=== PATIENT | male | born 1945 | race Caucasian/White ===

== ENCOUNTER → 2020-01-07 15:56 | Outpatient (BNVA) | payer MEDICARE, OTHER, SELFPAY | PROVIDERS: Family Provider Internal Medicine; PCP Internal Medicine; Referring Provider Internal Medicine; Visit Provider Dermatology | DX: Z12.83 Encounter for screening for malignant neoplasm of skin (principal); Q82.8 Other specified congenital malformations of skin; D22.9 Melanocytic nevi, unspecified; L82.1 Other seborrheic keratosis; B35.1 Tinea unguium | CPT/HCPCS: 99203 ==

== ENCOUNTER 2020-02-17 08:21 | Outpatient (CLI) | payer MEDICARE, OTHER, SELFPAY ==
--- NOTE | 2020-02-17 08:06 | ECG_ITS ---
[facility] Test Date: 2020-02-17 Pat Name: Bandar Marlow Department: Room: Gender: Male Machine Staker: Aparna Martino : 1945 Requested By: Jesus Rodriguez Order Number: [id number] Meaghan MD: Jesus Rodriguez M.D. Interpretive Statements NAME OF STUDY: EXERCISE SESTAMIBI STRESS TEST INDICATION: [Chest Pain, ] Procedure: At the baseline the blood pressure was 132/72 mmHg, oxygen saturation 96% with a heart rate of 70 bpm. The electrocardiogram showed sinus rhythm, normal axis with normal ST and T's. Exercised on Charan protocol for a total of 6 minutes and 30 seconds. Achieved 10.2 METS. Heart rate. A total of 0.4 mg of Lexiscan was infused. The stress phase was continued for a total of 5 minutes. Maximum heart rate at peak stress was 135 bpm which was 91% of maximum predicted heart rate, oxygen saturation 93% with a blood pressure of 179/57 mmHg. The EKG at the peak infusion revealed sinus rhythm with no significant ST-T wave changes. Occasional PVCs were noted. Sestamibi was injected 20 seconds after exercise. blood pressure at the end of recovery phase was 156/80 mmHg, oxygen saturation 93% with a heart rate of 75 bpm. Conclusion: 1. Normal EKG response to exercise 2. No exercise induced chest pain or cardiac arrhythmia. 3. Normal blood pressure and heart rate response. 4. Sestamibi/sestamibi perfusion scan pending; see separate report. Electronically Signed On 02-17-2020 14:40:55 CDT by Jesus Rodriguez M.D. [id number]
--- NOTE | 2020-02-17 08:06 | NMCV_ITS ---
NM kristopher perf SPECT r/s* [id number] Bandar Marlow Age: 74 Gender: M : 1945 Exam Date: 02/17/2020 08:51 Ordering Phys: Molina Hopkins MD Technologist: Vanessa Mcgowan Exam Location: [facility] Indications: Chest pain STRESS TEST Please see separate stress test report in [facility] for full findings IMAGE PROTOCOL Rest/Stress 1 Exercise Day Radiopharmaceutical Dose (mCi) Administration Site Administered by Rest: Tc-99m 10.8 IV Sameer Gabriel, WATER MECHANIC Sestamibi Stress:Tc-99m 31.6 IV Shahrzad Tubbs WATER MECHANIC Sestamibi Rest: 17-Feb-2020 60 Discovery 630 Stress: 17-Feb-2020 60 Discovery 630 Radiopharmaceutical was injected at 85 % maximum heart rate. Images obtained in supine and prone position. SPECT RESULTS Technical Quality: Good Raw Data Analysis: Normal Image Corrections: No attenuation or motion correction applied Summed Stress Score: 4 Summed Rest Score: 8 Summed Difference Score: 3 PERFUSION FINDINGS There is decreased uptake of radiotracer in the inferior wall. This improves on stress indicating presence of attenuation artifact. No significant reversible defect is noted in other territories. FUNCTIONAL RESULTS (calculated via Gated SPECT) Stress Image LV EF (%): 55 Stress EDV (mL):85 TID: 1.07 Stress ESV (mL):38 FUNCTIONAL FINDINGS: There is normal left ventricular systolic function. IMPRESSIONS 1. Normal myocardial perfusion with no reversible perfusion defect noted. Decreased uptake in inferior wall is likely secondary to attenuation artifact. 2. Normal LV systolic function with EF 55%. Jesus Rodriguez MD (Electronically Signed) Final Date: 22 February 2020 18:13 S
[2020-02-17 08:17] VITALS: BMI 24.3
[2020-02-17 10:07] VITALS: BP 190/92; PULSE 86
== END 2020-02-17 08:22 | disposition home or self-care (01) ==
LOC: CDL 08:21
PROVIDERS: PCP Internal Medicine; Visit Provider Internal Medicine
DX: R07.9 Chest pain, unspecified (principal)
CPT/HCPCS: 78452; 93017; A9500

== ENCOUNTER 2022-03-09 11:21 | Outpatient (RCR) | payer MEDICARE, OTHER, SELFPAY | END 2022-03-24 06:00 | disposition home or self-care (01) | LOC: SPT 11:21 | PROVIDERS: PCP Internal Medicine; Visit Provider Internal Medicine | DX: R29.6 Repeated falls (principal) | CPT/HCPCS: 97110; 97112; 97161 ==

== ENCOUNTER → 2022-05-03 14:37 | Outpatient (BNVA) | payer MEDICARE, OTHER, SELFPAY | PROVIDERS: PCP Internal Medicine; Visit Provider Internal Medicine | DX: I25.10 Atherosclerotic heart disease of native coronary artery without angina pectoris (principal); I10 Essential (primary) hypertension; R07.9 Chest pain, unspecified; Z87.891 Personal history of nicotine dependence | CPT/HCPCS: 99214 ==

== ENCOUNTER → 2023-01-02 13:27 | Outpatient (BNVA) | payer MEDICARE, OTHER, SELFPAY | PROVIDERS: PCP Internal Medicine; Visit Provider Dermatology | DX: D18.01 Hemangioma of skin and subcutaneous tissue (principal); L82.1 Other seborrheic keratosis; L57.0 Actinic keratosis; L81.4 Other melanin hyperpigmentation; Z85.828 Personal history of other malignant neoplasm of skin | CPT/HCPCS: 17000; 99213 ==

== ENCOUNTER → 2023-05-02 14:55 | Outpatient (BNVA) | payer MEDICARE, OTHER, SELFPAY | PROVIDERS: PCP Internal Medicine; Visit Provider Internal Medicine | DX: I10 Essential (primary) hypertension (principal); I25.10 Atherosclerotic heart disease of native coronary artery without angina pectoris; R07.9 Chest pain, unspecified; Z87.891 Personal history of nicotine dependence; Z79.82 Long term (current) use of aspirin | CPT/HCPCS: 99214 ==

== ENCOUNTER → 2024-01-03 14:23 | Outpatient (BNVA) | payer MEDICARE, OTHER, SELFPAY | PROVIDERS: PCP Internal Medicine; Visit Provider Nurse Practitioner Family | DX: D18.01 Hemangioma of skin and subcutaneous tissue (principal); L82.1 Other seborrheic keratosis; L81.4 Other melanin hyperpigmentation; Z85.828 Personal history of other malignant neoplasm of skin | CPT/HCPCS: 99213 ==

== ENCOUNTER → 2024-04-28 12:24 | Outpatient (BNVA) | payer MEDICARE, OTHER, SELFPAY | PROVIDERS: PCP Internal Medicine; Visit Provider Internal Medicine | DX: I10 Essential (primary) hypertension (principal); I25.10 Atherosclerotic heart disease of native coronary artery without angina pectoris; R07.9 Chest pain, unspecified | CPT/HCPCS: 99213 ==

== ENCOUNTER → 2024-12-29 14:21 | Outpatient (BNVA) | payer MEDICARE, OTHER, SELFPAY | PROVIDERS: PCP Internal Medicine; Visit Provider Nurse Practitioner Family | DX: D18.01 Hemangioma of skin and subcutaneous tissue (principal); L82.1 Other seborrheic keratosis; L81.4 Other melanin hyperpigmentation; Z08 Encounter for follow-up examination after completed treatment for malignant neoplasm; Z85.828 Personal history of other malignant neoplasm of skin | CPT/HCPCS: 99213 ==